=== PATIENT | female | born 1990 | race Caucasian/White ===

== ENCOUNTER 2023-02-22 09:35 | Outpatient (CLI) | payer OTHER ==
[2023-02-22 11:19] VITALS: BP 126/82; PULSE 63; RESP 16; TEMP 97.9
--- NOTE | 2023-04-18 13:34 | P.MSEPDOC ---
Presenting Problems - Arrival Data Date of Arrival on Unit: 02/22/23 Time of Arrival on Unit: 09:35 Mode of Transport: Ambulatory - Complaint OB-Reason for Admission/Chief Complaint: Rule Out SROM, NST Medical History - Information : 3 Para: 2 Term: 2 : 0 Abortions: Spontaneous or Elective: 0 Number of Living Children: 2 - Gestational Age Gestational Age by JARED (wks/days): 38 Weeks and 6 Days - History Complications: Prior Review of Systems - Review of Systems Constitutional: No problems Breast: No problems ENT: No problems Cardiovascular: No problems Respiratory: No problems Gastrointestinal: No problems Genitourinary: No problems Musculoskeletal: No problems Neurological: No problems Skin: No problems Vital Signs - Temperature Temperature: 97.9 F Temperature Source: Temporal Artery Scan - Pulse Right Sitting Pulse Rate: 63 Pulse Assessment Method: Automatic Cuff - Respirations Respiratory Rate: 16 Oxygen Delivery Method: Room Air - Blood Pressure Right Arm Blood Pressure: 126/82 Blood Pressure Mean: 96 Blood Pressure Source: Automatic Cuff Medical Screen Scoring - Cervical Exam Membranes: Intact - Assessment - Baby A Baseline FHR: 135 Heart Rate - NICHD Category: Category I (Normal) NST: Reactive Physician Notification - Physician Notified Physician Notified Date: 02/22/23 Physician Notified Time: 10:47 Physician: Chiquita Leos New Order Received: Yes Maternal Triage Index - Non-Urgent/Priority 4 Non-Urgent Priority 4: Yes Criteria Met for Priority 4: negative amnisure, reactive nst Disposition - Disposition OB Disposition: Discharge to home Discharge Date: 02/22/23 Discharge Time: 10:50 I agree with the RN Medical Screening Exam: Yes Case reviewed; plan agreed upon as documented in EMR&OBIX.: Yes Diagnosis: RELATED CONDITIONS, UNSPECIFIED, THIRD TRIMESTER
== END 2023-02-22 10:50 | disposition home or self-care (01) ==
LOC: FBPOP 09:35
PROVIDERS: ATTEND Obstetrics & Gynecology Obstetrics
DX: O47.1 False labor at or after 37 completed weeks of gestation (principal); Z3A.38 38 weeks gestation of pregnancy; Z88.5 Allergy status to narcotic agent; Z91.040 Latex allergy status; Z88.8 Allergy status to other drugs, medicaments and biological substances
CPT/HCPCS: 59025; 84112

== ENCOUNTER 2023-02-26 09:04 | Inpatient (IN) | payer OTHER ==
[2023-02-20 17:21] VITALS: BMI 28.7
[2023-02-26] MEDS ORDERED: CARBOPROST TROMETHAMINE 250 MCG/ML 1 ML AMP IM PRN (10:29)
[2023-02-26] MEDS ORDERED: TRANEXAMIC 1,000 MG/100ML-NACL 1,000 MG in EMPTY BAG 1 BAG IV PRN (10:29)
[2023-02-26] MEDS ORDERED: OXYTOCIN 10 UNIT/ML 1 ML VIAL IM PRN (10:29)
[2023-02-26] MEDS ORDERED: miSOPROStoL 200 MCG TAB PO PRN (10:29)
[2023-02-26] MEDS ORDERED: METHYLERGONOVINE 0.2 MG/ML 1 ML AMP IM PRN (10:29)
[2023-02-26] MEDS: LACTATED RINGERS 1,000 ML IV ONE (10:36)
[2023-02-26 10:44] LABS: Basophils % (A) 0 %; Eosinophils % (A) 0 %; HCT 33.9 % (34.0-46.0); HGB 11.3 gm/dL (11.4-16.0); Lymphocytes % (A) 19 %; MCH 30.7 pg (25.0-35.0); MCHC 33.3 g/dL (31.0-37.0); Mean Platelet Volume 8.5; Monocytes # (A) 0.5 k/uL (0-1.0); Monocytes % (A) 5 %; Neutrophils # (A) 7.6 k/uL (1.3-7.7); Neutrophils % (A) 74 %; Platelet Count 242 k/uL (150-450); RBC 3.68 m/uL (3.80-5.40); RDW 13.3 % (11.5-15.5); WBC 10.3 k/uL (3.8-10.6)
[2023-02-26 11:04] VITALS: RESP 16
[2023-02-26] MEDS: CITRIC ACID-SODIUM CITRATE 15 ML CUP PO ONE (11:44)
[2023-02-26] MEDS ORDERED: MORPHINE SULFATE (PF) 0.3 MG/0.3 ML SYR ONE (12:16)
[2023-02-26] MEDS ORDERED: OXYTOCIN 30 UNITS/500 ML NS BAG IV ONE (12:16)
[2023-02-26] MEDS ORDERED: ONDANSETRON 4 MG/2 ML VIAL ONE (12:16)
[2023-02-26] MEDS ORDERED: NALBUPHINE 10 MG/ML (10 ML MDV) ONE (12:16)
[2023-02-26] MEDS ORDERED: NALOXONE 0.4 MG/ML 1 ML VIAL IV PRN (13:12)
[2023-02-26] MEDS ORDERED: diphenhydrAMINE 25 MG CAP PO PRN (13:12)
[2023-02-26] MEDS ORDERED: SIMETHICONE 80 MG CHEWABLE PO PRN (13:12)
[2023-02-26] MEDS ORDERED: METOCLOPRAMIDE 5 MG/ML 2 ML VIAL IVP PRN (13:12)
[2023-02-26] MEDS ORDERED: ONDANSETRON 4 MG/2 ML VIAL IVP PRN (13:12)
[2023-02-26] MEDS ORDERED: ZOLPIDEM 5 MG TAB PO PRN (13:12)
[2023-02-26] MEDS ORDERED: diphenhydrAMINE 50 MG/ML 1 ML VIAL IVP PRN ×2 (13:12)
[2023-02-26] MEDS ORDERED: diphenhydrAMINE 50 MG CAP PO PRN (13:12)
[2023-02-26] MEDS ORDERED: HYDROmorphone 2 MG TAB PO PRN (13:12)
--- NOTE | 2023-02-26 13:18 | P.HPOB ---
History of Present Illness H&P Date: 02/26/23 Chief Complaint: IUP at 39-3/7 weeks, previous , family planning co mplete 33-year-old G5 para 20-2 at 39-3/7 weeks, estimated due date of 122 that presents to labor and delivery for scheduled repeat section with tubal ligation. She states she has gotten twice on control, and desires permanent sterilization. Patient has been receiving routine care which has been essentially uncomplicated. Patient does have a history of gastric bypass. Patient notes good movement denies contractions vaginal bleeding or loss of fluid. On bloodwork this patient is a blood type of A+, rubella status immune, hepatitis B surface antigen negative, HIV negative, RPR nonreactive, group beta strep cultures negative. Review of Systems Constitutional: Denies chills, Denies fatigue, Denies fever Ears, nose, mouth and throat: Denies headache Cardiovascular: Reports leg edema Respiratory: Denies dyspnea Gastrointestinal: Denies constipation, Denies diarrhea, Denies nausea, Denies vomiting Genitourinary: Reports Past Medical History Past Medical History: No Reported History History of Any Multi-Drug Resistant Organisms: None Reported Past Surgical History: Bariatric Surgery, Section, Cholecystectomy, Tonsillectomy, Uterine Ablation Additional Past Surgical History / Comment(s): GASTRIC BYPASS 2020. C SEC X 2. D & C WITH UTERINE ABLATION X 2. EGD Past Anesthesia/Blood Transfusion Reactions: Previous Problems w/ Anesthesia Additional Past Anesthesia/Blood Transfusion Reaction / Comment(s): HARD TIME COMING OUT OF ANESTHESIA, FAINTED ON TABLE AFTER LAST C-SEC 2019 Past Psychological History: Anxiety Additional Psychological History / Comment(s): UNDER CONTROL AT THIS TIME-TAKES LEXAPRO WHEN NOT Smoking Status: Never smoker Past Alcohol Use History: None Reported Past Drug Use History: None Reported - Past Family History Mother Family Medical History: No Reported History Father Family Medical History: AFIB Medications and Allergies Home Medications Medication Instructions Recorded Confirmed Type Ferrous Sulfate [Feosol] 325 mg PO DAILY 02/20/23 02/26/23 History Vit No.179/Iron/Folic 1 each PO DAILY 02/20/23 02/26/23 History [ Tablet] Allergies Allergy/AdvReac Type Severity Reaction Status Date / Time codeine Allergy Anaphylaxis Verified 02/26/23 10:28 Latex, Natural Rubber Allergy Rash/Hives Verified 02/26/23 10:28 NSAIDS (Non-Steroidal AdvReac HX GASTRIC Verified 02/26/23 10:28 Anti-Inflamma BYPASS Exam Osteopathic Statement: *. No significant issues noted on an osteopathic structural exam other than those noted in the History and Physical/Consult. Vital Signs Temp Pulse Resp BP Pulse Ox 02/26/23 10:36 97.8 F 71 16 113/78 99 Intake and Output 02/25/23 02/26/23 02/26/23 22:59 06:59 14:59 Other: Weight 90.718 kg Targeted physical exam is performed on this date and product marketer a well-nourished well-developed female in no acute distress, breathing is noted to be nonlabored, heart has a regular rate and rhythm, abdomen is gravid, cervical exam is deferred, heart tones are be category 1 and she is not karina Results Result Diagrams: 02/26/23 10:34 Abnormal Lab Results - Last 24 Hours (Table) 02/26/23 Range/Units 10:34 RBC 3.68 L (3.80-5.40) m/uL Hgb 11.3 L (11.4-16.0) gm/dL Hct 33.9 L (34.0-46.0) % Assessment and Plan (1) Term Current Visit: Yes Status: Acute Code(s): Z34.90 - ENCNTR FOR SUPRVSN OF NORMAL , UNSP, UNSP TRIMESTER SNOMED Code(s): 96795586 (2) H/O section Current Visit: Yes Status: Acute Code(s): Z98.891 - HISTORY OF UTERINE SCAR FROM PREVIOUS SURGERY SNOMED Code(s): 928332009 (3) Family planning Current Visit: Yes Status: Acute Code(s): Z30.09 - ENCOUNTER FOR OTH GENERAL CNSL AND ADVICE ON CONTRACEPTION SNOMED Code(s): 689320484 Plan: 33-year-old 0-2 at 39-3/7 weeks that presents for repeat section and tubal ligation. Patient denies concerns. Patient is counseled on and risks. Risser reviewed including but not limited to infection, bleeding, damage to bladder, bowel, injury. Patient states understanding and wishes to proceed. We'll proceed with scheduled repeat section with bilateral salpingectomy. Permanence of procedure is discussed and she states understanding.
--- NOTE | 2023-02-26 13:21 | P.OP ---
Date of Procedure: 02/26/23 Preoperative Diagnosis: IUP at 39-3/7 weeks, history of 2, desires repeat, family planning complete desires permanent sterilization Postoperative Diagnosis: Same Procedure(s) Performed: Repeat section with bilateral salpingectomy Anesthesia: spinal Surgeon: Chiquita Leos Room Worker #1: George Whaley Estimated Blood Loss (ml): 620 IV fluids (ml): 600 Urine output (ml): 150 Pathology: none sent Condition: stable Disposition: observation Indications for Procedure: History of 2, desires permanent sterilization Operative Findings: Viable female infant delivered at 1238, weight of 7 lbs. 4 oz., Apgars of 8 and 9 at one and 5 minutes respectively. Anterior bladder wall adhesions were taken down sharply with good visualization of bladder, Ambriz catheter noted to be draining clear yellow urine throughout the procedure. Description of Procedure: The patient was prepped and draped in the usual fashion after spinal anesthesia was administered by the anesthesia department. A Pfannenstiel incision was made and extended of the abdominal cavity without difficulty. The bladder peritoneum was elevated and incised and reflected distally. A 2 cm incision was made in the transverse plane of the lower uterine segment to enter the uterus at which time clear fluid was noted. The incision was extended in both directions bluntly. The head was encountered within the field and delivered up and through the incision where the nose and mouth were thoroughly suctioned. Remainder of the infant was delivered onto the surgical field where the cord was doubly clamped, cut, and the was passed for resuscitative measures with weight and Apgars as noted above. A segment of cord was then doubly clamped, c ut, and set aside should cord gases become necessary. The placenta was delivered manually, intact, and was grossly normal with a grossly normal three- vessel cord. The uterus was exteriorized and the interior cavity of the uterus swept of any remaining placental and membranous fragments with a laparotomy sponge. The margins of the incision were grasped with Allis clamps and the incision closed in 2 layers. First layer was a running locking layer of 0 Vicryl from margin to margin in a running locked fashion. Attention then turned to the patient's right fallopian tube which was elevated and mesosalpinx was cauterized and transected with the LigaSure. A complete section of the fallopian tube was removed. This was then repeated on the opposite side up to the cornual region. Hemostasis was appreciated for both fallopian tubes were transected. The hysterotomy site was inspected hemostasis was noted. Any small points of bleeding were then made hemostatic with the Bovie. Once hemostasis was achieved, the posterior cul-de-sac was suctioned with a guard and the uterine and ovarian findings are as noted above. The uterus was replaced within the abdominal cavity and the gutters swept of any remaining blood fluid or clot. The incision was again reexamined and hemostasis was noted to be excellent. Any small point of bleeding were made hemostatic with the Bovie. Once hemostasis was achieved the parietal peritoneum was loosely reapproximated. The layer of muscles were examined and made hemostatic with the Bovie. Attention was then turned to the fascia which was closed with 2 running stitches of 0 Vicryl proceeding from the lateral margins to the midpoint. The subcutaneous tissues were irrigated, made hemostatic with the Bovie, and reapproximated with a running stitch of 30 Vicryl. The skin was reapproximated with 4-0 Vicryl. Estimated blood loss for the case was approximately 620 mL. All sponge instrument and needle counts are correct. There were no complications. The patient tolerated the procedure well and proceeded to the recovery room in stable condition. Both mother and infant are resting comfortably in recovery.
[2023-02-26] MEDS: ACETAMINOPHEN IV (For NPO) 1,000 MG in EMPTY BAG 1 BAG IVPB SCH (14:52)
[2023-02-26] MEDS: LACTATED RINGERS 1,000 ML IV SCH (17:56)
[2023-02-26] MEDS: KETOROLAC 15 MG/ML 1 ML VIAL IVP SCH (18:47)
[2023-02-26] MEDS: SENNOSIDES-DOCUSATE SODIUM 1 EACH TAB PO SCH (20:29)
[2023-02-27 07:44] LABS: Basophils % (A) 0 %; Eosinophils # (A) 0.1 k/uL (0-0.7); Eosinophils % (A) 1 %; HCT 27.3 % (34.0-46.0); Lymphocytes # (A) 1.8 k/uL (1.0-4.8); Lymphocytes % (A) 15 %; MCH 31.2 pg (25.0-35.0); MCHC 33.7 g/dL (31.0-37.0); MCV 92.4 fL (80.0-100.0); Monocytes # (A) 0.6 k/uL (0-1.0); Monocytes % (A) 5 %; Neutrophils # (A) 9.3 k/uL (1.3-7.7); Neutrophils % (A) 79 %; Platelet Count 192 k/uL (150-450); RBC 2.95 m/uL (3.80-5.40); RDW 13.4 % (11.5-15.5); WBC 11.8 k/uL (3.8-10.6)
[2023-02-27 07:46] LABS: HGB 9.2 gm/dL (11.4-16.0)
--- NOTE | 2023-02-27 08:12 | P.PN ---
Progress Note - Text Progress Note Date: 02/27/23 (3610) Anesthesia Postop day 1 Subjective: Status Post section with Duramorph. Patient seen and examined. Doing well without complaint. VAS 0. No nausea or vomiting. Mild pruritus tolerable.. Gross lower extremity strength intact. Without apparent anesthetic complications. Objective: Vital signs reviewed Heart: Regular Rate Lungs: Good chest excursion Abdomen: Appears nondistended Assessment: Status post with Duramorph postop day 1 Plan: Continue current care with your medical management. Anticipated Duramorph action and around time today. You may see increased pain needs around this time. This note was dictated using [employer] CRM software. Please be advised there is a potential for misspellings or errors in subscription clerk.
--- NOTE | 2023-02-27 09:36 | P.PNOBGPC ---
Subjective - Subjective Principal diagnosis: Postop day 1, repeat with bilateral salpingectomy Interval history: Patient is doing well postoperatively. She is ambulating and voiding without difficulty. She is tolerating a regular diet without nausea or vomiting. She states her pain is well-controlled. She denies concerns this morning Patient reports: Reports appetite normal, Reports voiding normally, Reports pain well controlled, Reports ambulating normally [place]: doing well Objective - Vital Signs Latest vital signs: Vital Signs Temp Pulse Resp BP Pulse Ox 02/27/23 08:00 97.9 F 55 L 16 103/67 02/27/23 04:00 97 16 116/69 97 02/27/23 00:00 56 L 16 107/64 98 02/26/23 20:00 97.7 F 52 L 16 116/72 97 02/26/23 15:00 97.9 F 62 16 132/72 99 02/26/23 14:34 58 L 16 124/68 98 02/26/23 14:04 55 L 16 126/74 97 02/26/23 13:49 54 L 16 126/74 97 02/26/23 13:34 51 L 16 128/75 97 02/26/23 13:19 80 16 110/75 97 02/26/23 13:04 97.5 F L 80 16 133/69 97 02/26/23 10:36 97.8 F 71 16 113/78 99 Intake and Output 02/26/23 02/27/23 02/27/23 22:59 06:59 14:59 Output Total 700 150 500 Balance -700 -150 -500 Output: Urine 600 150 500 Uretheral (Ambriz) 600 Output, Quantitative 100 Blood Loss Other: # Voids 1 1 - Exam Extremities: Present: normal, edema Abdomen: Present: normal appearance, soft Incision: Present: normal, dry Uterus: Present: normal, firm - Labs Labs: Abnormal Lab Results - Last 24 Hours (Table) 02/26/23 02/27/23 Range/Units 10:34 06:40 WBC 11.8 H (3.8-10.6) k/uL RBC 3.68 L 2.95 L (3.80-5.40) m/uL Hgb 11.3 L 9.2 L D (11.4-16.0) gm/dL Hct 33.9 L 27.3 L (34.0-46.0) % Neutrophils # 9.3 H (1.3-7.7) k/uL Assessment and Plan (1) Term Current Visit: Yes Status: Acute Code(s): Z34.90 - ENCNTR FOR SUPRVSN OF NORMAL , UNSP, UNSP TRIMESTER SNOMED Code(s): 79785252 (2) H/O section Current Visit: Yes Status: Acute Code(s): Z98.891 - HISTORY OF UTERINE SCAR FROM PREVIOUS SURGERY SNOMED Code(s): 333527246 (3) Family planning Current Visit: Yes Status: Acute Code(s): Z30.09 - ENCOUNTER FOR OTH GENERAL CNSL AND ADVICE ON CONTRACEPTION SNOMED Code(s): 601354205 (4) S/P section Current Visit: Yes Status: Acute Code(s): Z98.891 - HISTORY OF UTERINE SCAR FROM PREVIOUS SURGERY SNOMED Code(s): 960290329 Plan: Patient is doing well postoperatively, we'll encourage increased ambulation, plan to remove abdominal dressing at 24 hours. Anticipate discharge home tomorrow.
[2023-02-27] MEDS: ACETAMINOPHEN TAB 500 MG TAB PO SCH (15:17)
--- NOTE | 2023-02-28 08:10 | P.DS ---
Providers Date of admission: 02/26/23 09:57 Expected date of discharge: 02/28/23 Attending physician: Chiquita Leos Primary care physician: Stated None - Discharge Diagnosis(es) (1) Term Current Visit: Yes Status: Acute (2) H/O section Current Visit: Yes Status: Acute (3) Family planning Current Visit: Yes Status: Acute (4) S/P section Current Visit: Yes Status: Acute Hospital Course: 33-year-old G5 now para 3023 presented to labor and delivery on 02/26 for scheduled repeat section with bilateral salpingectomy. Patient had been receiving routine care which has been essentially uncomplicated. Patient was admitted to labor and delivery and repeat section with bilateral salpingectomy was performed without difficulty. For full details on the procedure please see the dictated history and physical. Patient delivered a viable female at 1238, weight of 7 lbs. 4 oz., Apgars of 8 and 9 at one and 5 minutes respectively. Patient has done well postoperatively. On this postoperative day #2 she is ambulating and voiding without difficulty she is tolerating regular diet without nausea or vomiting. She states her pain is well-controlled with oral pain medication. She notes her lochia to be minimal. She is breast-feeding without difficulty. She does desire discharge home today. Patient Condition at Discharge: Good Plan - Discharge Summary Discharge Rx Participant: No New Discharge Prescriptions: No Action Vit No.179/Iron/Folic [ Tablet] 1 each PO DAILY Ferrous Sulfate [Feosol] 325 mg PO DAILY Discharge Medication List Ferrous Sulfate [Feosol] 325 mg PO DAILY 02/20/23 [History] Vit No.179/Iron/Folic [ Tablet] 1 each PO DAILY 02/20/23 [History] Follow up Appointment(s)/Referral(s): Chiquita Leos DO [Doctor of Osteopathic Medicine] - 2 Weeks Patient Instructions/Handouts: (DC), (GEN) Activity/Diet/Wound Care/Special Instructions: no tub baths or intercourse until 6 weeks post , [id number] Tylenol as needed for pain. bleeding is reviewed with patient. Patient is to call the office make a routine 2 week postoperative check. Should she have any concerns prior to this point she is urged to call the office. Discharge Disposition: HOME SELF-CARE
[2023-02-28 08:26] VITALS: BP 123/75; PULSE 74; TEMP 97.7
== END 2023-02-28 11:40 | disposition home or self-care (01) | DRG 785 ==
LOC: 4FBP 09:57
PROVIDERS: ADMIT Obstetrics & Gynecology Obstetrics; ATTEND Obstetrics & Gynecology Obstetrics
PROC: 0UT70ZZ Resection of Bilateral Fallopian Tubes, Open Approach (ICD-10-PCS; 2023-02-26)
PROC: 10D00Z1 Extraction of Products of Conception, Low, Open Approach (ICD-10-PCS; principal; 2023-02-26 12:00)
DX: O34.211 Maternal care for low transverse scar from previous cesarean delivery (principal); O99.844 Bariatric surgery status complicating childbirth; O90.9 Complication of the puerperium, unspecified; L29.9 Pruritus, unspecified; Z37.0 Single live birth; Z3A.39 39 weeks gestation of pregnancy; Z30.2 Encounter for sterilization; Z88.5 Allergy status to narcotic agent; Z91.040 Latex allergy status; Z88.6 Allergy status to analgesic agent; Z28.310 Unvaccinated for COVID-19
CPT/HCPCS: 85025; 86850; 86900; 86901; 88302

== ENCOUNTER → 2024-03-14 | Outpatient (CLI) | payer OTHER, BC ==
[2024-03-14 15:45] LABS: Basophils # (A) 0.03 X 10*3/uL (0.00-0.10); Basophils % (A) 0.5 %; Eosinophils # (A) 0.09 X 10*3/uL (0.04-0.35); Eosinophils % (A) 1.5 %; HCT 37.9 % (37.2-46.3); Lymphocytes % (A) 41.1 %; MCH 28.4 pg (27.0-32.0); MCHC 31.7 g/dL (32.0-37.0); MCV 89.8 FL (80.0-97.0); Mean Platelet Volume 10.8 FL (9.5-12.2); Monocytes # (A) 0.43 X 10*3/uL (0.20-1.00); Monocytes % (A) 7.1 %; NRBC Per 100 WBC 0 X 10*3/uL (0.00-0.01); Neutrophils # (A) 3.01 X 10*3/uL (1.80-7.70); Neutrophils % (A) 49.5 %; Platelet Count 389 X 10*3/uL (140-440); RBC 4.22 X 10*6/uL (4.10-5.20); WBC 6.08 X 10*3/uL (4.50-10.00)
== END | disposition home or self-care (01) ==
LOC: LABPAT 10:29
PROVIDERS: ATTEND Obstetrics & Gynecology Obstetrics
DX: Z01.818 Encounter for other preprocedural examination (principal); N92.0 Excessive and frequent menstruation with regular cycle
CPT/HCPCS: 85025

== ENCOUNTER 2024-03-20 08:44 | Day surgery (SDC) | payer BC, OTHER ==
[2024-03-14 15:36] VITALS: BMI 26.8
[~2024-03-20 08:44] MED LIST: HYDROmorphone 0.5 MG/0.5 ML SYRINGE IVP PRN; LACTATED RINGERS 1,000 ML IV SCH; LIDOCAINE 1% (10MG/ML) FOR IV START INTRADERMA PRN; Pre Op ABX Message 1 EACH MISC MISCELLANE ONE; SCOPOLAMINE 1 MG/72 HR PATCH TRANSDERM ONE; droPERidol 5 MG/2 ML VIAL IVP ONE
[2024-03-20 09:22] VITALS: RESP 16
[2024-03-20] MEDS: IV FLUID CONTINUATION 1,000 ML IV ONE (09:22)
[2024-03-20] MEDS: ONDANSETRON 4 MG/2 ML VIAL IVP PRN (09:33)
[2024-03-20] MEDS: DEXAMETHASONE SOD PHOSPHATE 4 MG/ML 1 ML VIAL IV ONE (09:33)
[2024-03-20] MEDS: FAMOTIDINE 20 MG/2 ML VIAL IV STA (09:33)
[2024-03-20] MEDS ORDERED: LIDOCAINE 1% INJ 10MG/ML (20 ML MDV) ONE (09:49)
[2024-03-20] MEDS ORDERED: fentaNYL (PF) 50 MCG/ML 2 ML AMP ONE (09:49)
[2024-03-20] MEDS ORDERED: MIDAZOLAM 2 MG/2 ML VIAL ONE (09:49)
[2024-03-20] MEDS ORDERED: PROPOFOL 10 MG/ML 20 ML VIAL IV ONE (09:49)
--- NOTE | 2024-03-20 10:38 | P.OP ---
Date of Procedure: 03/20/24 Preoperative Diagnosis: Heavy menstrual bleeding Postoperative Diagnosis: Same Procedure(s) Performed: Hysteroscopy, dilation and curettage Anesthesia: MAC Surgeon: Chiquita Leos Estimated Blood Loss (ml): 5 IV fluids (ml): 400 Urine output (ml): 10 Pathology: other (Endometrial curettings) Condition: stable Disposition: PACU Indications for Procedure: Heavy menstrual bleeding Operative Findings: Proliferative endometrium Description of Procedure: Patient was taken back to the operating room where general anesthesia was obtained without difficulty by the anesthesia department. She was prepped and draped in the normal sterile fashion in the dorsal lithotomy position. A latex free catheter was used to drain the bladder, clear urine urine was obtained. A weighted speculum is placed in the posterior vaginal vault the antilipid the cervix was visualized and grasped with a single-tooth tenaculum. Endocervical canal was then serially dilated, a hysteroscope was placed through the cervix and toward the endometrial cavity. An intact cavity was appreciated. Proliferative endometrium was noted. The hysteroscope was removed. A sharp curettage was then performed until gritty texture was noted in all 4 quadrants of the endometrial cavity. This tissue was then sent to pathology for analysis. All instruments were removed and the patient's vaginal vault. The single-tooth tenaculum was taken off of the anterior lip of the cervix and hemostasis was appreciated. All counts were noted be correct x 2. Patient was taken to the recovery room awake in stable condition.
[2024-03-20 10:54] VITALS: TEMP 98.2
[2024-03-20 11:46] VITALS: BP 104/69; PULSE 60
== END 2024-03-20 11:58 | disposition home or self-care (01) ==
LOC: OR 08:44
PROVIDERS: ATTEND Obstetrics & Gynecology Obstetrics
DX: N92.1 Excessive and frequent menstruation with irregular cycle (principal); N94.6 Dysmenorrhea, unspecified; N84.0 Polyp of corpus uteri; D25.9 Leiomyoma of uterus, unspecified; E28.2 Polycystic ovarian syndrome; F41.9 Anxiety disorder, unspecified; Z91.89 Other specified personal risk factors, not elsewhere classified; Z79.899 Other long term (current) drug therapy; Z87.892 Personal history of anaphylaxis; Z98.51 Tubal ligation status; Z98.84 Bariatric surgery status; Z88.5 Allergy status to narcotic agent; Z91.040 Latex allergy status; Z88.6 Allergy status to analgesic agent
CPT/HCPCS: 81025; 58558; J2250; J1100; J2405; J2003; J3010; J3490; J2704; 88305

== ENCOUNTER → 2024-10-03 | Outpatient (CLI) | payer OTHER ==
--- NOTE | 2024-10-03 15:07 | US ---
EXAMINATION TYPE: US thyroid st tissue head/neck DATE OF EXAM: 10/03/2024 COMPARISON: NONE CLINICAL INDICATION: Female, 34 years old with history of E04.1 SINGLE THYROID NODULE; F/U thyroid no dule TECHNIQUE: Grayscale and color Doppler imaging of the thyroid gland. FINDINGS: GLAND SIZE: Right Lobe: 5.4 x 1.2 x 2.0 cm Overall Parenchyma: homogeneous Left Lobe: 5.3 x 0.9 x 1.9 cm Overall Parenchyma: homogeneous Isthmus Thickness: 0.2 cm NODULES RIGHT: # of nodules measured on right: 0 LEFT: # of nodules measured on left: 1 1. 0.6 X 0.4 x 0.6 cm, lower mid, mixed cystic and solid, hypoechoic TR4 nodule, which is wider tatiana n tall, with smooth margins, without echogenic foci. ISTHMUS: # of nodules measured in the isthmus: 0 Bilateral neck scanned, no evidence of lymphadenopathy. IMPRESSION: Borderline to mild thyromegaly. Solitary 6 mm TR4 nodule on the left. TI-RADS level nodule reported: 2017 ACR TI-RADS LEVEL: TI-RADS 4 - Moderately Suspicious: Follow if > 1 cm, FNA if > 1.5 cm [facility], , 10/03/2024 3:04 PM
== END | disposition home or self-care (01) ==
LOC: RADUSWWP 14:06
PROVIDERS: ATTEND Family Medicine
DX: E04.1 Nontoxic single thyroid nodule (principal)
CPT/HCPCS: 76536

== ENCOUNTER 2024-10-07 10:21 | Emergency (ER) | payer OTHER ==
[2024-10-07 10:35] VITALS: TEMP 98.2
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
[2024-10-07] MEDS: ACETAMINOPHEN TAB 500 MG TAB PO STA (11:10)
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
[2024-10-07 12:27] VITALS: BP 116/72; PULSE 50; RESP 18
== END 2024-10-07 12:27 | disposition home or self-care (01) ==
LOC: EC 10:21
DX: S06.0X1A Concussion with loss of consciousness of 30 minutes or less, initial encounter (principal); R40.2412 Glasgow coma scale score 13-15, at arrival to emergency department; Z91.040 Latex allergy status; Z88.5 Allergy status to narcotic agent; Z88.8 Allergy status to other drugs, medicaments and biological substances; Z88.6 Allergy status to analgesic agent; W22.8XXA Striking against or struck by other objects, initial encounter
CPT/HCPCS: 70450; 70486; 72125; 99284